=== PATIENT | male | born 1965 | race Two or more races ===

== ENCOUNTER 2020-10-21 20:39 | Emergency (ER) | payer OTHER ==
[~2020-10-21] VITALS: Ht 172.7 cm; Wt 90.7 kg
[2020-10-21 20:55] VITALS: BP 188/107
[2020-10-21 21:00] LABS: BASOPHILS % (AUTO) 0.8 % (0.0-2.0); EOSINOPHILS % (AUTO) 1.2 % (0.0-3.0); HEMATOCRIT 49.4 % (42.0-52.0); HEMOGLOBIN 16.3 G/DL (14.2-18.0); LYMPHOCYTES % (AUTO) 42.4 % (20.0-45.0); MEAN CORPUSCULAR VOLUME 89 FL (80-99); MONOCYTES % (AUTO) 7.9 % (1.0-10.0); NEUTROPHILS % (AUTO) 47.7 % (45.0-75.0); PLATELET COUNT 233 K/UL (150-450); RED BLOOD COUNT 5.53 M/UL (4.70-6.10); RED CELL DISTRIBUTION WIDTH 13.2 % (11.6-14.8)
[2020-10-21] MEDS ORDERED: Labetalol 5mg/ml 20ml vial IV ONE (21:00)
--- NOTE | 2020-10-21 21:03 | Emergency Room Report ---
History of Present Illness General Chief Complaint: Palpitations Source: Patient, EMS (Doug Thorpe MD) Present Illness HPI Patient presents with palpitations via paramedics. Started after having something to eat tonight. Patient had some tequila this morning. Paramedics alleged that he had not taken his blood pressure medicines. The patient states he has taken them. Patient never had this problem before. He denies any chest pain. There is no calf pain or swelling. He feels anxious because of the palpitations. He denies dizziness or loss of consciousness. He does have a rewriter and relates that he has not had any other cardiac problems aside from hypertension. Patient denies exposure to Covid positive contacts. No fevers, chills, sore throat, nausea, vomiting, diarrhea, dysuria, abdominal pain, shortness of breath, joint pain, rashes, visual changes, headache. (Doug Thorpe MD) Allergies: Coded Allergies: No Known Allergies (Unverified , 10/21/20) COVID-19 Screening Contact w/high risk pt: No Experienced COVID-19 symptoms?: No COVID-19 Testing performed RESEARCH TECHNOLOGIST: No (Doug Thorpe MD) Patient History Past Medical History: see triage record Social History: Reports: smoking, alcohol use; Denies: drug use Social History Narrative Reviewed Nursing Documentation: PMH: Agreed; PSxH: Agreed (Doug Thorpe MD) Nursing Documentation-PMH Hx Diabetes: Yes (Doug Thorpe MD) Review of Systems All Other Systems: negative except mentioned in HPI (Doug Thorpe MD) Physical Exam Vital Signs Date Time Temp Pulse Resp B/P (MAP) Pulse Ox O2 Delivery O2 Flow Rate FiO2 10/21/20 20:30 98.4 142 16 206/142 (163) 98 Room Air Sp02 EP Interpretation: reviewed, normal General Appearance: alert, GCS 15, non-toxic, other - Anxious Head: normocephalic Eyes: bilateral eye normal inspection, bilateral eye PERRL, bilateral eye EOMI ENT: moist mucus membranes Neck: supple Respiratory: lungs clear, normal breath sounds Cardiovascular #1: no edema, tachycardia Cardiovascular #2: 2+ radial (R) Gastrointestinal: normal inspection, normal bowel sounds, non tender, no mass, non-distended, overweight Musculoskeletal: back normal, normal range of motion, no calf tenderness, gait/station normal Neurologic: alert, oriented x3, grossly normal Psychiatric: mood/affect normal, anxious Skin: no rash, warm/dry (Doug Thorpe MD) Medical Decision Making Diagnostic Impression: Primary Impression: New onset atrial flutter Additional Impressions: Leukocytosis Qualified Codes: D72.829 - Elevated white blood cell count, unspecified Hyperglycemia ER Course Patient presents with sinus tachycardia and hypertension without chest pain. Still we need to evaluate for possible myocardial infarction. In addition electrolyte imbalance, arrhythmia uncontrolled hypertension, anxiety, renal failure amongst others need to be considered patient evaluated his EKG, chest x- ray and labs. Patient placed on flitch hanger. Patient given a dose of labetalol EKG sinus tachycardia without injury. Chest x-ray no infiltrates but poor inspiration. Labs with potassium of 3.3. Troponin negative. BP better with labetalol, but HR still elevated. NS bolus. Still tachycardia. Diltiazem given. Convert to slower rhythm. 12 lead with atrial flutter - variable block. Admit hospital for further eval and observation. Could be related to alcohol use. ([facility]) Discussed with patient the need for echocardiogram, consultation with rewriter and further medications to stabilize his rhythm. Advised that he might need to have anticoagulation. Laboratory Tests Test 10/21/20 20:45 10/21/20 21:10 White Blood Count 12.0 K/UL (4.8-10.8) H Red Blood Count 5.53 M/UL (4.70-6.10) Hemoglobin 16.3 G/DL (14.2-18.0) Hematocrit 49.4 % (42.0-52.0) Mean Corpuscular Volume 89 FL (80-99) Mean Corpuscular Hemoglobin 29.5 PG (27.0-31.0) Mean Corpuscular Hemoglobin Concent 32.9 G/DL (32.0-36.0) Red Cell Distribution Width 13.2 % (11.6-14.8) Platelet Count 233 K/UL (150-450) Mean Platelet Volume 8.7 FL (6.5-10.1) Neutrophils (%) (Auto) 47.7 % (45.0-75.0) Lymphocytes (%) (Auto) 42.4 % (20.0-45.0) Monocytes (%) (Auto) 7.9 % (1.0-10.0) Eosinophils (%) (Auto) 1.2 % (0.0-3.0) Basophils (%) (Auto) 0.8 % (0.0-2.0) Prothrombin Time 11.6 SEC (9.30-11.50) H Prothrombin Time INR 1.1 (0.9-1.1) Activated Partial Thromboplast Time 30 SEC (23-33) Sodium Level 138 MMOL/L (136-145) Potassium Level 3.3 MMOL/L (3.5-5.1) L Chloride Level 100 MMOL/L (98-107) Carbon Dioxide Level 29 MMOL/L (21-32) Anion Gap 9 mmol/L (5-15) Blood Urea Nitrogen 10 mg/dL (7-18) Creatinine 1.1 MG/DL (0.55-1.30) Estimated Glomerular Filtration Rate > 60 mL/min (>60) Glucose Level 211 MG/DL (74-106) H Calcium Level 9.7 MG/DL (8.5-10.1) Total Bilirubin 0.3 MG/DL (0.2-1.0) Aspartate Amino Transferase (AST) 37 U/L (15-37) Alanine Aminotransferase (ALT) 84 U/L (12-78) H Alkaline Phosphatase 136 U/L (46-116) H Total Creatine Kinase 119 U/L (26-308) Troponin I 0.002 ng/mL (0.000-0.056) Pro-B-Type Natriuretic Peptide 34 pg/mL (0-125) Total Protein 7.5 G/DL (6.4-8.2) Albumin 4.2 G/DL (3.4-5.0) Globulin 3.3 g/dL Albumin/Globulin Ratio 1.3 (1.0-2.7) Lipase 145 U/L (73-393) Serum Alcohol < 3 mg/dL Urine Color Pale yellow Urine Appearance Clear Urine pH 7 (4.5-8.0) Urine Specific [place] 1.005 (1.005-1.035) Urine Protein 2+ (NEGATIVE) H Urine Glucose (UA) 3+ (NEGATIVE) H Urine Ketones Negative (NEGATIVE) Urine Blood Negative (NEGATIVE) Urine Nitrite Negative (NEGATIVE) Urine Bilirubin Negative (NEGATIVE) Urine Urobilinogen Normal MG/DL (0.0-1.0) Urine Leukocyte Esterase Negative (NEGATIVE) Urine RBC 0-2 /HPF (0 - 0) H Urine WBC 0 /HPF (0 - 0) Urine Squamous Epithelial Cells None /LPF (NONE/OCC) Urine Bacteria None /HPF (NONE) Urine Opiates Screen Negative (NEGATIVE) Urine Barbiturates Screen Negative (NEGATIVE) Phencyclidine (PCP) Screen Negative (NEGATIVE) Urine Amphetamines Screen Negative (NEGATIVE) Urine Benzodiazepines Screen Negative (NEGATIVE) Urine Cocaine Screen Negative (NEGATIVE) Urine Marijuana (THC) Screen Negative (NEGATIVE) (Doug Thorpe MD) ER Course This patient signed out to me pending admission to telemetry. He presents with chief complaint of palpitation and was noted to be in rapid A. fib/atrial flutter. He did admit to drinking yesterday. He decided that he does not want to be in the hospital because of Covid concern. He said he felt better now. Risks and benefit explained to this patient. He spoke with his on the phone and decided to leave AGAINST MEDICAL ADVICE. He is competent to make that decision. At this moment in time, his heart rate is in the 70s. (Darío Ca MD) EKG Diagnostic Results Rate: tachycardiac Rhythm: NSR ST Segments: no acute changes Other Impression Second EKG after diltiazem is A flutter variable block. No injury. Rate 62 (Doug Thorpe MD) Rhythm Strip Diag. Results Rhythm: no PVC's, no ectopy, other - Sinus tachycardia (Doug Thorpe MD) Chest X-Ray Diagnostic Results Chest X-Ray Diagnostic Results : Chest X-Ray Ordered: Yes # of Views/Limited/Complete: 1 View Indication: Other EP Interpretation: Yes Interpretation: no consolidation, no effusion, no pneumothorax, other - Poor inspiration Impression: Other Electronically Signed by: Electronically signed by Doug Thorpe MD (Doug Thorpe MD) Last Vital Signs Date Time Temp Pulse Resp B/P (MAP) Pulse Ox O2 Delivery O2 Flow Rate FiO2 10/21/20 22:00 98.4 66 17 130/70 99 Room Air Status: improved (Doug Thorpe MD) Status: improved (Darío Ca MD) Disposition: AGAINST MEDICAL ADVICE Condition: Improved Doug Thorpe MD Oct 21, 2020 21:03 Darío Ca MD Oct 21, 2020 23:27
[2020-10-21 21:11] LABS: ANION GAP 9 mmol/L (5-15); BLOOD UREA NITROGEN 10 mg/dL (7-18); CALCIUM 9.7 MG/DL (8.5-10.1); CARBON DIOXIDE 29 MMOL/L (21-32); CHLORIDE 100 MMOL/L (98-107); CREATININE 1.1 MG/DL (0.55-1.30); POTASSIUM 3.3 MMOL/L (3.5-5.1); SODIUM 138 MMOL/L (136-145)
[2020-10-21 21:12] LABS: INR 1.1 (0.9-1.1)
[2020-10-21 21:22] LABS: ALANINE AMINOTRANSFERASE 84 U/L (12-78); ALBUMIN 4.2 G/DL (3.4-5.0); ALBUMIN/GLOBULIN RATIO 1.3 (1.0-2.7); ALKALINE PHOSPHATASE 136 U/L (46-116); ASPARTATE AMINO TRANSFERASE 37 U/L (15-37); BILIRUBIN,TOTAL 0.3 MG/DL (0.2-1.0); CREATINE KINASE 119 U/L (26-308)
[2020-10-21 21:39] LABS: APPEARANCE,URINE CLEAR; BILIRUBIN, URINE NEGATIVE (NEGATIVE); COLOR,URINE PALE YELLOW; GLUCOSE, URINE (UA) 3+ (NEGATIVE); KETONES,URINE NEGATIVE (NEGATIVE); LEUKOCYTE ESTERASE ,URINE NEGATIVE (NEGATIVE); NITRITE,URINE NEGATIVE (NEGATIVE); PH,URINE 7 (4.5-8.0); PROTEIN,URINE 2+ (NEGATIVE); UROBILINOGEN,URINE NORMAL MG/DL (0.0-1.0)
--- NOTE | 2020-10-21 21:45 | NUR ---
ED Nurse Note: Recieved pt with c/o palpitations x 2 hours, denies chest pain but states he can feel his heart beating fast, pt has cardiac history and states this has not happend before, pt denies fevers, diarrhea or any other s/s,pt immediately placed on monitoring, has patent IV site, intact, labs drawn, MD at bedside, will resume care as ordered with close, continuous monitoring. pt has elevated b/p and heart rate. no sob or labored breathing noted.
[2020-10-21 22:00] VITALS: BP 130/70
[2020-10-21] MEDS ORDERED: dilTIAZem HCl 25mg/5ml Inj IVP ONE (22:00)
--- NOTE | 2020-10-21 23:00 | NUR ---
ED Nurse Note: Pt medicated as ordered, tolerated well, v/s stable, no chest pain or sob, IV site patent, will continue to monitor as pt being prepared for disposition.
[2020-10-21 23:25] VITALS: BP 130/70
--- NOTE | 2020-10-21 23:25 | NUR ---
ED Nurse Note: Pt has room for admission and being prepared to be sent when suddennly he stated he does not want to stay, pt states hes afraid of Covid and has to work in am, pt given time to discuss with and decided he wants to leave, informed, pt signed AMA form and given instructions to call 911 if any s/s arise again, tp leaving ambulatory with , nad noted during pt leaving.
--- NOTE | 2020-10-22 10:29 | Diagnostic Imaging Report ---
Procedure: XRAY Chest 1v Reason for study: Chest pain Comparison films: None. FINDINGS: Median sternotomy wires appear intact. Vascularity is normal. The lung arenas are clear bilaterally. Cardiac and mediastinal silhouette are within normal limits. CP angles are sharp. The bony thorax appear unremarkable. IMPRESSION: NO ACUTE CARDIOPULMONARY DISEASE.
== END 2020-10-21 23:25 | disposition left against medical advice (07) ==
LOC: EDBD 20:39 → EMR 21:15 → 2E 22:39 → UNDOADMIN 22:39 → EDBEDREQ 22:44 → EMR 23:25 → CANBEDREQ 23:26
DX: I48.92 Unspecified atrial flutter (principal); D72.829 Elevated white blood cell count, unspecified; E11.65 Type 2 diabetes mellitus with hyperglycemia; F17.200 Nicotine dependence, unspecified, uncomplicated; I10 Essential (primary) hypertension; Z53.29 Procedure and treatment not carried out because of patient's decision for other reasons
CPT/HCPCS: 36415; 71045; 80053; 80307; 81003; 82550; 83690; 83880; 84484; 85025; 85610; 85730; 93005; 96361; 96374; 96375; 99284; G0480; J8499